=== PATIENT | male | born 1965 | race Caucasian/White ===

== ENCOUNTER 2022-05-15 14:02 | Emergency (ER) | payer BC, MEDICAID, SELFPAY ==
[2022-05-15 14:16] VITALS: BP 168/91; PULSE 89; RESP 17; TEMP 36.5; O2SAT 95; BMI 23.1
[2022-05-15 15:27] LABS: Basophils # 0.1 10^3/uL (0.0-0.1); Basophils % 0.6 %; Eosinophils # 0.1 10^3/uL (0.0-0.8); Eosinophils % 0.9 %; Hematocrit 43.7 % (42.0-52.0); Hemoglobin 14.4 g/dL (11.7-16.6); Lymphocytes # 2.3 10^3/uL (0.8-4.8); Lymphocytes % 27.3 %; Mean Corpuscular Hemoglobin 29.6 pg (28.0-34.0); Mean Corpuscular Volume 89.7 fl (80-94); Mean Platelet Volume 11.2 fL (7.4-10.4); Monocytes # 0.7 10^3/uL (0.2-0.9); Monocytes % 7.9 %; Neutrophils # 5.19 10^3/uL (1.8-7.7); Neutrophils % 63.1 %; Nucleated Red Blood Cells % 0 %; Platelet Count 194 10^3/cmm (130-400); Red Blood Count 4.87 10^6/uL (4.1-5.3); Red Cell Distribution Width 12.9 % (12.1-15.1); White Blood Count 8.2 10^3/uL (4.0-10.0)
[2022-05-15 15:45] LABS: Alanine Aminotransferase 10 U/L (0-41); Albumin Level 4.4 g/dL (3.5-5.2); Alkaline Phosphatase 93 U/L (40-130); Anion Gap 14.3 (5-19); Aspartate Amino Transferase 14 U/L (0-40); Blood Urea Nitrogen 20 mg/dL (6-20); Calcium 9.2 mg/dL (8.5-10.5); Carbon Dioxide 26 mmol/L (22-29); Chloride 105 mmol/L (98-107); Globulin 2.7 g/dL (1.3-4.6); Glomerular Filtration Rate 48.2 mL/min (90-130); Glucose 84 mg/dL (65-115); Lipase 32 U/L (13-60); Osmolality Calculated 294 mOsm/kg (285-295); Potassium 4.3 mmol/L (3.5-5.1); Sodium 141 mmol/L (136-145); Total Bilirubin 0.5 mg/dL (0.15-1.2); Total Protein 7.1 g/dL (6.6-8.7)
== END 2022-05-15 18:25 | disposition left against medical advice (07) ==
PROVIDERS: Physician Assistant; Emergency Provider Family Medicine; PCP Family Medicine
DX: R10.30 Lower abdominal pain, unspecified (principal); Z53.21 Procedure and treatment not carried out due to patient leaving prior to being seen by health care provider
CPT/HCPCS: 36415; 80053; 83690; 85025; 99283

== ENCOUNTER → 2023-10-20 12:26 | Outpatient (BNVA) | payer BC, MEDICAID, SELFPAY | PROVIDERS: PCP Family Medicine; Visit Provider Internal Medicine | DX: R00.1 Bradycardia, unspecified (principal) | CPT/HCPCS: 93005 ==

== ENCOUNTER → 2023-11-12 14:02 | Outpatient (BNVA) | payer BC, MEDICAID, SELFPAY | PROVIDERS: PCP Family Medicine; Visit Provider Orthopaedic Surgery | DX: M54.2 Cervicalgia (principal) | CPT/HCPCS: 36415; 72050; 80053; 81001; 85025 ==

== ENCOUNTER 2023-11-16 12:56 | Emergency (ER) | payer BC, MEDICAID, SELFPAY ==
[2023-11-16 12:57] VITALS: BP 149/76; PULSE 50; RESP 17; TEMP 36.7; O2SAT 100
--- NOTE | 2023-11-16 13:01 | CTR_ITS ---
PROCEDURE INFORMATION: Exam: CT Head Without Contrast Exam date and time: 11/16/2023 1:11 PM Age: 58 years old Clinical indication: Dizziness; Additional info: Possible stroke/tia TECHNIQUE: Imaging protocol: Computed tomography of the head without contrast. Radiation optimization: All CT scans at this facility use at least one of these dose optimization techniques: automated exposure control; mA and/or kV adjustment per patient size (includes targeted exams where dose is matched to clinical indication); or iterative reconstruction. COMPARISON: MR cervical spine wo/w [id number] 10/07/2023 12:04 PM RADIATION DOSE METRICS: Total DLP (mGy-cm): 1073 FINDINGS: Brain: No evidence of intra-axial or extra-axial hemorrhage. No mass effect or midline shift. Waller-white differentiation is maintained. Mild-moderate diffuse cerebral atrophy. Basilar cisterns are patent. Cerebral ventricles: No hydrocephalus. Paranasal sinuses: The visualized paranasal sinuses are well aerated. Mastoid air cells: The visualized mastoids and middle ears are clear. Bones: Calvarium is intact. No evidence of acute fracture. Soft tissues: No gross soft tissue abnormality. CT/CT head wo con* [id number] IMPRESSION: 1. No acute intracranial abnormality.
--- NOTE | 2023-11-16 13:01 | XRR_ITS ---
PROCEDURE INFORMATION: Exam: XR Chest Exam date and time: 11/16/2023 1:06 PM Age: 58 years old Clinical indication: Other: Weakness TECHNIQUE: Imaging protocol: Radiologic exam of the chest. Views: 1 view. COMPARISON: CR XR cervical spine 4-5V [id number] 11/12/2023 2:14 PM FINDINGS: Lungs: No focal consolidation. Pleural spaces: No evidence of pneumothorax. No evidence of pleural effusion. Heart/Mediastinum: Cardiomediastinal silhouette is within normal limits. Bones/joints: No evidence of acute osseous abnormality. XR/XR chest 1V portable [id number] IMPRESSION: 1. No acute cardiopulmonary abnormality.
--- NOTE | 2023-11-16 13:02 | ECG_ITS ---
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 Measurements Intervals [place] Rate: 48 P: 76 MD: 116 QRS: 64 QRSD: 102 T: 42 QT: 446 QTc: 399 Interpretive Statements SINUS BRADYCARDIA WITH SHORT MD INTERVAL POSSIBLE RIGHT VENTRICULAR CONDUCTION DELAY [RSR (QR) IN V1/V2] POSSIBLE LEFT VENTRICULAR HYPERTROPHY [VOLTAGE CRITERIA PLUS LAE OR QRS WIDENING] NONSPECIFIC T-WAVE ABNORMALITY Compared to ECG 10/20/2023 12:37:24 No significant changes Electronically Signed On 11-16-2023 23:26:09 CDT by Oriana Sanchez M.D. [email or web address]
--- NOTE | 2023-11-16 13:33 | ED_ITS ---
HPI - Neck Pain/Injury 2 General: Chief Complaint: Neck Pain/Injury Stated Complaint: weakness, blurry vision Time Seen by Provider: 11/16/23 12:57 History of Present Illness: 58-year-old man with history of hyperten selvin who presents emergency room from clinic after having an episode . Provider who called the emergency room says that he became fairly unresponsive. His vitals are remained normal. He says he has been having these episodes and it is related to pain in his neck and back. He has chronic pain there. He says he was doing a stress test and says he could not hold onto the bars for the treadmill and so he could not complete it. He said that it was hurting his hands. He says he remembers the episode completely. No chest pain. No abdominal pain. No nausea or vomiting. No altered mental status. No focal motor deficits. Related Data Home Medications Medication Instructions Recorded Confirmed duloxetine 20 mg capsule,delayed 20 mg PO DAILY 10/20/23 11/16/23 release lisinopril 20 mg tablet 20 mg PO DAILY 10/20/23 11/16/23 trazodone 50 mg tablet 50 mg PO DAILY 10/20/23 11/16/23 Allergies Allergy/AdvReac Type Severity Reaction Status Date / Time No Known Allergies Allergy Verified 11/16/23 12:15 Review of Systems 2 Narrative: Constitutional symptoms: Negative except as documented in HPI. Skin symptoms: Negative except as documented in HPI. Eye symptoms: Negative except as documented in HPI. ENMT symptoms: Negative except as documented in HPI. Respiratory symptoms: Negative except as documented in HPI. Cardiovascular symptoms: Negative except as documented in HPI. Gastrointestinal symptoms: Negative except as documented in HPI. Genitourinary symptoms: Negative except as documented in HPI. Musculoskeletal symptoms: Negative except as documented in HPI. Neurologic symptoms: Negative except as documented in HPI. Psychiatric symptoms: Negative except as documented in HPI. Endocrine symptoms: Negative except as documented in HPI. PFSH ED 2 PFSH: Medical History (Updated 11/16/23 @ 14:18 by Danielle Webster MD) Hypertension Social History Smoking and tobacco/nicotine status: current every day tobacco/nicotine user Physical Exam 2 Narrative: EXAM NARRATIVE: General: Alert, no acute distress. Skin: Warm, dry. Head: Normocephalic, atraumatic. Neck: Supple, trachea midline. Eye: Extraocular movements are intact. Ears, nose, mouth and throat: mucosa moist. Cardiovascular: Regular, Normal peripheral perfusion. Respiratory: Lungs are clear to auscultation, respirations are non-labored, breath sounds are equal, Symmetrical chest wall expansion. Gastrointestinal: Soft, Nontender, Non distended Musculoskeletal: Normal ROM, no deformity. Neurological: Alert and oriented, No focal neurological deficit observed. Psychiatric: Cooperative, appropriate mood & affect. Course 2 Vital Signs: Vital signs: Vital Signs Temperature 98.1 F 11/16/23 12:57 Pulse Rate 50 L 11/16/23 13:52 Respiratory Rate 16 11/16/23 13:52 Blood Pressure 149/76 11/16/23 13:52 Pulse Oximetry 99 11/16/23 13:52 Oxygen Delivery Me thod Room Air 11/16/23 13:52 MDM - Neck Pain/Injury Medical Decision Making CT head: No acute intracranial process. no intracranial hemorrhage, no evidence of infarct. no evidence of acute fracture.This was reviewed and interpreted by myself the ER physician. Chest x-ray: No acute process. No infiltrate. No pneumothorax. This was reviewed and interpreted by myself the ER physician. EKG: Time 1353. Rate 48. Sinus bradycardia, nonspecific ST wave abnormalities, no ectopy, normal FL & QRS intervals, This was reviewed and interpreted by myself the ER physician at 1358. Lab Review: Laboratory results were reviewed and interpreted by myself the emergency room physician. No leukocytosis. No anemia. Stable renal function with a BUN/creatinine of 24 and 1.5 which is his baseline. Troponin is negative. Urinalysis is negative. I reviewed the patient's medical record. Reexamination: Patient remained stable. No increased work of breathing. No altered mental status. No focal motor deficits. Patient says these episodes are related to his neck and back pain. Assessment and plan: Dizzy spells Bradycardia - Discharged home - Discussed findings and plan with patient. Answered any questions. - All laboratory values were reviewed and interpreted personally by myself, the ER physician - All imaging was reviewed and interpreted personally by myself, the ER physician. - Evaluation and treatment of this problem were appropriate in the emergency setting Lab Data 11/16/23 13:26 11/16/23 13:26 Radiology Impressions Chest X-Ray 11/16/23 13:01 IMPRESSION: 1. No acute cardiopulmonary abnormality. Head CT 11/16/23 13:01 IMPRESSION: 1. No acute intracranial abnormality. Laboratory Results WBC 7.89 10^3/uL (3.29-11.43) 11/16/23 13:26 RBC 4.60 10^6/uL (3.85-5.65) 11/16/23 13:26 Hgb 13.90 g/dL (11.27-16.99) 11/16/23 13:26 Hct 42.1 % (37-53) 11/16/23 13:26 MCV 91.5 fl (82-101) 11/16/23 13:26 MCH 30.2 pg (27-33) 11/16/23 13: MCHC 33.0 g/dL (30-55) 11/16/23 13:26 RDW 13.1 % (12.1-15.1) 11/16/23 13:26 Plt Count 188 10^3/cmm (157-399) 11/16/23 13:26 MPV 10.6 fL (7.4-10.4) H 11/16/23 13:26 Neut % (Auto) 69.6 % 11/16/23 13:26 Lymph % (Auto) 22.3 % 11/16/23 13:26 [place] % (Auto) 6.3 % 11/16/23 13:26 Eos % (Auto) 1.0 % 11/16/23 13:26 Baso % (Auto) 0.5 % 11/16/23 13:26 Neut # (Auto) 5.49 10^3/uL (1.8-7.7) 11/16/23 13:26 Lymph # (Auto) 1.8 10^3/uL (0.8-4.8) 11/16/23 13:26 [place] # (Auto) 0.5 10^3/uL (0.2-0.9) 11/16/23 13:26 Eos # (Auto) 0.1 10^3/uL (0.0-0.8) 11/16/23 13:26 Baso # (Auto) 0.0 10^3/uL (0.0-0.1) 11/16/23 13:26 Nucleated RBC % (auto) 0 % 11/16/23 13:26 Nucleated RBCs # 0.0 /100WBC 11/16/23 13:26 Sodium 140 mmol/L (136-145) 11/16/23 13:26 Potassium 4.8 mmol/L (3.5-5.1) 11/16/23 13:26 Chloride 104 mmol/L (98-107) 11/16/23 13:26 Carbon Dioxide 27 mmol/L (22-29) 11/16/23 13:26 Anion Gap 13.8 (5-19) 11/16/23 13:26 BUN 24 mg/dL (6-20) H 11/16/23 13:26 Creatinine 1.5 mg/dL (0.7-1.2) H 11/16/23 13:26 GFR Calculation 47.9 mL/min (90-130) L 11/16/23 13:26 Glucose 92 mg/dL (65-115) 11/16/23 13:26 Calculated Osmolality 294 mOsm/kg (285-295) 11/16/23 13:26 Lactic Acid 1.2 mmol/L (0.5-2.2) 11/16/23 13:26 Calcium 9.4 mg/dL (8.5-10.5) 11/16/23 13:26 Total Bilirubin 0.2 mg/dL (0.15-1.2) 11/16/23 13:26 AST 12 U/L (0-40) 11/16/23 13:26 ALT 10 U/L (0-41) 11/16/23 13:26 Alkaline Phosphatase 93 U/L (40-130) 11/16/23 13:26 Troponin T Baseline 12 ng/L (0-15) 11/16/23 13:26 C-Reactive Protein 3.0 mg/L (0.0-4.9) 11/16/23 13:26 Total Protein 6.7 g/dL (6.6-8.7) 11/16/23 13:26 Albumin 4.5 g/dL (3.5-5.2) 11/16/23 13:26 Globulin 2.2 g/dL (1.3-4.6) 11/16/23 13:26 Urine Color Yellow (Yellow) 11/16/23 14:01 Urine Appearance Clear (CLEAR) 11/16/23 14:01 Urine pH 7.0 (5-7) 11/16/23 14:01 Ur Specific [place] 1.021 (1.005-1.030) 11/16/23 14:01 Urine Protein Trace (Negative) A 11/16/23 14:01 Urine Glucose (UA) Negative (Normal) 11/16/23 14:01 Urine Ketones Negative (Negative) 11/16/23 14:01 Urine Blood Negative (Negative) 11/16/23 14:01 Urine Nitrate Negative (Negative) 11/16/23 14:01 Urine Bilirubin Negative (Negative) 11/16/23 14:01 Urine Urobilinogen 1.0 mg/dL (Negative) 11/16/23 14:01 Ur Leukocyte Esterase Negative (Negative) 11/16/23 14:01 Urine RBC 0-2 /hpf (0-2) 11/16/23 14:01 Urine WBC 0-5 /hpf (0-5) 11/16/23 14:01 Ur Squamous Epith Cells 0-5 /hpf (0-5) 11/16/23 14:01 Amorphous Sediment Not Reportable 11/16/23 14:01 Urine Bacteria None seen /hpf (NONE) 11/16/23 14:01 Hyaline Casts 0.40 /lpf 11/16/23 14:01 All radiology interpretation(s) finalized by discharge Discharge Plan Discharge Patient Disposition: Home Clinical Impression: Dizzy spells Condition: Stable Prescriptions: No Action lisinopril 20 mg tablet 20 mg PO DAILY duloxetine 20 mg capsule,delayed release(DR/EC) 20 mg PO DAILY trazodone 50 mg tablet 50 mg PO DAILY Discharge Orders: Discharge ED (Routine); Ordered 11/16/23 Ordered By: Danielle Webster Referrals: Conner Haile [Primary Care Provider] - Discharge Diet: Usual diet Discharge Activity: Increase activity as tolerated Patient Instructions: Dizziness (ED), Back Pain (ED) Activity Restrictions/Additional Instructions: Thank you for choosing [facility] for your healthcare needs today. Please realize this is an emergency room and that we are providing you with a medical screening exam and this may not be complete and all inclusive of all the testing and or work up that you may need to determine your ailment or severity of your illness. You have been screened and evaluated and felt safe for discharge. Health conditions do change or evolve sometimes and as such it is important that you follow up with your Primary Doctor to be re checked, 3-5 days is a general good time frame for follow up. You are always welcome to return to the ED for re assessment if your symptoms are worsening or you have new concerns Coding Level of Care Code ED Watch Repairer for Mimi Griffiths
[2023-11-16 13:37] LABS: Basophils % 0.5 %; Eosinophils # 0.1 10^3/uL (0.0-0.8); Hematocrit 42.1 % (37-53); Lymphocytes # 1.8 10^3/uL (0.8-4.8); Lymphocytes % 22.3 %; Mean Corpuscular Hemoglobin 30.2 pg (27-33); Mean Corpuscular Volume 91.5 fl (82-101); Mean Platelet Volume 10.6 fL (7.4-10.4); Monocytes # 0.5 10^3/uL (0.2-0.9); Monocytes % 6.3 %; Neutrophils # 5.49 10^3/uL (1.8-7.7); Neutrophils % 69.6 %; Nucleated Red Blood Cells % 0 %; Platelet Count 188 10^3/cmm (157-399); Red Cell Distribution Width 13.1 % (12.1-15.1); White Blood Count 7.89 10^3/uL (3.29-11.43)
[2023-11-16 13:52] VITALS: BP 149/76; PULSE 50; RESP 16; O2SAT 99
[2023-11-16 13:54] LABS: Troponin(5th) Baseline 12 ng/L (0-15)
[2023-11-16 13:55] LABS: Lactic Sepsis W/Reflex 1.2 mmol/L (0.5-2.2)
[2023-11-16 14:05] LABS: Alanine Aminotransferase 10 U/L (0-41); Albumin Level 4.5 g/dL (3.5-5.2); Alkaline Phosphatase 93 U/L (40-130); Anion Gap 13.8 (5-19); Aspartate Amino Transferase 12 U/L (0-40); Blood Urea Nitrogen 24 mg/dL (6-20); Calcium 9.4 mg/dL (8.5-10.5); Carbon Dioxide 27 mmol/L (22-29); Chloride 104 mmol/L (98-107); Creatinine Clr Calc Pharmacy 49.8846; Globulin 2.2 g/dL (1.3-4.6); Glomerular Filtration Rate 47.9 mL/min (90-130); Glucose 92 mg/dL (65-115); Osmolality Calculated 294 mOsm/kg (285-295); Potassium 4.8 mmol/L (3.5-5.1); Sodium 140 mmol/L (136-145); Total Bilirubin 0.2 mg/dL (0.15-1.2); Total Protein 6.7 g/dL (6.6-8.7)
[2023-11-16 14:06] LABS: Bilirubin Urine Negative (Negative); Blood Urine Negative (Negative); Glucose Urine UA Negative (Normal); Ketones Urine Negative (Negative); Leukocyte Esterase Urine Negative (Negative); Nitrate Urine Negative (Negative); Protein Urine Trace (Negative); Specific Gravity, Urine 1.021 (1.005-1.030); Urine Appearance Clear (CLEAR); Urine Color Yellow (Yellow)
[2023-11-16 14:10] LABS: Bacteria Urine None Seen /hpf; RBC Urine 0-2 /hpf (0-2); Squamous Epithelial Cell Urine 0-5 /hpf (0-5); WBC Urine 0-5 /hpf (0-5)
[2023-11-16 14:32] VITALS: BP 134/73; PULSE 59; RESP 18; O2SAT 99
== END 2023-11-16 14:33 | disposition home or self-care (01) ==
PROVIDERS: Emergency Provider Emergency Medicine; PCP Family Medicine
DX: R42 Dizziness and giddiness (principal); R00.1 Bradycardia, unspecified; I10 Essential (primary) hypertension; Z72.0 Tobacco use
CPT/HCPCS: 36415; 70450; 71045; 80053; 81001; 83605; 84484; 85025; 86140; 93005; 99285

== ENCOUNTER 2023-12-01 09:40 | Outpatient (CLI) | payer BC, MEDICAID, SELFPAY ==
--- NOTE | 2023-12-01 | ECG_ITS ---
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 Interpretive Statements LEXISCAN SESTAMIBI STRESS TEST Procedure: At the baseline, the blood pressure was 182/89 mmHg with a heart rate of 43 bpm. The electrocardiogram showed Sinus bradycardia, normal axis with normal ST and T's. The Lexiscan was infused over a period of 20 seconds. A total of 0.4 mg of Lexiscan was infused. The stress phase was continued for a total of 5 minutes. Heart rate was at the end of stress phase was 71 bpm and a blood pressure of 177/77 mmHg. The EKG at the peak infusion revealed normal sinus rhythm with no significant ST-T wave changes. Sestamibi was injected 20 seconds after the Lexiscan infusion. Blood pressure at the end of recovery phase was 170/104 mmHg with a heart rate of 71 bpm. Conclusion: 1. Normal EKG response to Lexiscan infusion 2. No Lexiscan induced chest pain or cardiac arrhythmia. 3. Normal blood pressure and heart rate response. 4. Sestamibi/sestamibi perfusion scan pending; see separate report. Electronically Signed On 12-04-2023 20:22:33 CDT by Richard Harrington M.D. [id number]
[2023-12-01 09:52] VITALS: BMI 21.1
--- NOTE | 2023-12-01 09:53 | NMCV_ITS ---
NM monserrat perf SPECT r/s* [id number] Jovon Castellanos Age: 58 Gender: M : 1965 Exam Date: 12/01/2023 10:32 Ordering Phys: Richard Harrington M.D ([email or web address]) Technologist: LALO Silvestre Exam Location: [facility] Indications: cp STRESS TEST Please see separate stress test report in [facility] for full findings IMAGE PROTOCOL Rest/Stress 1 Exercise Day Radiopharmaceutical Dose (mCi) Administration Site Administered by Rest: Tc-99m 10.9 IV Marlene Reyna, LALO Sestamibi Stress:Tc-99m 32.9 IV LALO Silvestre Sestamibi Rest: 01-Dec-2023 60 Discovery 630 Stress: 01-Dec-2023 30 Discovery 630 0.4mg Lexiscan. Images obtained in supine and prone position. SPECT RESULTS Technical Quality: Good Raw Data Analysis: Normal Image Corrections: No attenuation or motion correction applied Summed Stress Score: 7 Summed Rest Score: 4 Summed Difference Score: 5 PERFUSION FINDINGS Medium sized area of fixed perfusion defect noted in basal to mid and lateral and inferolateral wall with distal small to medium area of mild reversibility suggestive of old myocardial infarction surrounded by small to medium sized area of derik-infarct ischemia in circumflex territory. Large area of fixed perfusion defect noted in basal to distal inferior and inferoseptal wall surrounded by mild area of reversibility in the distal and apical segment suggestive of old myocardial infarction surrounded by mild area of derik-infarct ischemia in the RCA territory. There appeared to be small area of apical severe reversibility suggestive of ischemia in distal LAD territory FUNCTIONAL RESULTS (calculated via Gated SPECT) Stress Image LV EF (%): 52 Stress EDV (mL):148 TID: 1.04 Stress ESV (mL):71 FUNCTIONAL FINDINGS: There is normal left ventricular systolic function. There appeared to be inferior wall akinesis IMPRESSIONS Medium sized area of old myocardial infarction versus scarring noted in basal to mid inferior and inferolateral lateral wall of the left ventricle surrounded by small to medium sized area of mild to moderate reversibility suggestive of ischemia in circumflex territory Large area of fixed perfusion defect noted in basal to distal inferior wall surrounded by mild area of reversibility suggestive of old myocardial infarction surrounded by mild derik-infarct ischemia in RCA territory Small area of severe reversibility noted in apical segment of the left ventricle suggestive of possible ischemia in a small distal area of LAD Kate Olivarez MD (Electronically Signed) Final Date: 01 December 2023 17:48 S
[2023-12-01] MEDS: regadenoson 0.4 Mg/5 ml Syringe IVP (11:11)
[2023-12-01] MEDS: aminophylline 25 mg/mL SDV 10 mL IVP (11:22)
[2023-12-01 11:24] VITALS: BP 170/104; PULSE 71
== END 2023-12-01 09:41 | disposition home or self-care (01) ==
PROVIDERS: PCP Family Medicine; Visit Provider Internal Medicine
DX: R07.9 Chest pain, unspecified (principal); R94.39 Abnormal result of other cardiovascular function study
CPT/HCPCS: 36415; 78452; 93017; 96374; A9500; J0280; J2785

== ENCOUNTER 2023-12-09 05:43 | Outpatient (CLI) | payer BC, MEDICAID, SELFPAY ==
[2023-12-09] VITALS (11 sets, daily range): BP systolic 116–131; BP diastolic 63–78; PULSE 47–63; RESP 13–25; TEMP 36.9; O2SAT 94–96; BMI 20.7
--- NOTE | 2023-12-09 06:00 | XACV_ITS ---
Exam Room: 2 Ht: 170 cm Wt: 60 kg BSA: 1.68 m2 Gender: Male : 1965 Any Known Allergies: No known allergies Exam Priority: Routine Procedure(s): Procedure Description: Diagnostic procedure Procedure Description: Left Heart Catheterization Procedure Description: Coronary Angiography Diagnostic Cath Status: Elective Diagnostic Findings * INDICATION: Dyspnea on exertion/abnormal stress test/ Chest pain. * No significant disease noted in the Left Main, Left Anterior Descending, Right, or Circumflex coronary arteries. * Coronary angiography shows right dominance. Conclusions 1. No significant disease noted in the Left Main, Left Anterior Descending, Right, or Circumflex coronary arteries. Recommendations * Aggressive risk factor control. * Outpatient cardiology follow up in 2 weeks. Interventional RX Recommendation: medical therapy and/or counseling Diagnostic RX Recommendation: medical therapy and/or counseling Anticoagulation: Heparin Pressures Phase:Rest AO : 97 / 68 ( 83 ) @ 12:24:00 PM 110 / 64 ( 83 ) @ 12:29:00 PM 108 / 64 ( 82 ) @ 12:29:00 PM LV : 134 / 3 / 11 @ 12:29:00 PM 138 / 2 / 12 @ 12:29:00 PM Valves Phase:DefaultPhase AV : 26.0 @ 11:34:17 AM AV Mean Gradient: 19.0 @ 11:34:17 AM Clinical Evaluation EBL: 5mL-10mL Procedural Details Pre-Procedure Time Out. Identified patient by full name and date of as verbalized by the patient/guarantor. Does the consent match the physician's order: Yes. Accurate & Complete Informed Consent: Yes. Inpatient/Outpatient History & Physical on Chart: Yes. If H&P is completed, is and addenduem needed: No; If yes, is the addendum complete: N/A. Visualize and Verify Site with Patient/Guarantor: N/A. Relevant Radiology Images available: Yes. Pre-op teaching completed and patient verbalized understanding. The risks, benefits, and alternatives of sedation and/or procedure were discussed by physician. The patient agrees to continue. Procedure started. [facility] Clinical Fraility Score: 3: Managing Well. Application Support Analyst Indications: Worsening Angina. Chest Pain Symptom Assessment: Atypical Angina. Correct patient, site and procedure confirmed by cath team. Current diagnosis: Chest Pain. PERRLA. Strong, equal hand college director bilaterally. Lungs clear x 5 lobes. IV Site on Arrival: 20 gauge in the left anticubital. IV Fluids: 0.9% NaCl at KVO. 700 mL infused prior to livestock laborer. Pre Procedural Pulses: bilateral dorsalis pedis was 3+. Pre Procedural Pulses: bilateral posterior tibial was 3+. Pre Procedural Pulses: bilateral radial was 3+. Oxygen started at 2liters/min via nasal canula. right groin was prepped with chloroprep then draped in the usual sterile fashion. right radial was prepped with chloroprep then draped in the usual sterile fashion. Baseline sample Acquired. HR: 49 BPM. Physician arrived. Physician scrubbed in. Immediate Pre-Procedure Time Out. Correct Patient: Yes; Correct Procedure: Yes; Correct Site: Yes; Correct Patient Position: Yes; Correct Supplies: Yes; Dried Flammable Prep: Yes; Blood Products Available: N/A;. Lidocaine 1% infiltrated to the right radial. Arterial access obtained. A 5 scottish TIG catheter in over wire. Multiple views taken of left coronary artery. Catheter redirected to the RCA. Catheter removed over the exchange wire. A 5 scottish JR4 catheter in over wire. Multiple views taken of right coronary artery. EDP Sample taken: LV 134/3,11; HR: 57 BPM; SpO2: 100%. Pullback taken: LV 138/2,12; AO 110/64(83); Mean: 19mmHg, Peak to Peak: 26mmHg, SEP: 16sec/min; HR: 57 BPM; SpO2: 100%. Catheter removed over the exchange wire. Physician scrubbed out. A TR Band was successful obtaining hemostatsis at the Right Radial artery insertion site. Vital chart was stopped. Post Procedure: Pulses reassessed and unchanged. PERRLA. Strong, equal hand college director bilaterally. No VTE prophylaxis required. Medication's Wasted: Lidocaine 1% = 16 mL. Medication's Wasted: Nitro = 49.8 mg. Medication's Wasted: Heparin = 1000 units. Total IV fluids: 70 mL. Complications: None. Estimated blood loss: 5mL-10mL. Responsiveness - Normal response to verbal stimuli; alert and oriented, PERRLA. Airway - Unaffected, no intervention required; spontaneous ventilation. Circulation: W/N/L, pulses unchanged. Nausea/Vomiting: No. Procedure completed. Patient transferred by wheelchair to CPRU. Access Site Site: Right Radial artery Sheath Size: 6 Fr Hemostasis Method: TR Band Hemostasis Success: Successful Procedure Medications Start: 11:18 AM Stop: :18 AM Medication: Versed Amount: 1 mg Route: I.V. Start: 11:18 AM Stop: 11:18 AM Medication: Fentanyl Amount: 50 mcg Route: I.V. Start: 11:19 AM Stop: 11: AM Medication: Versed 1 mg and Fentanyl 25 mcg Amount: 1 Route: I.V. Start: 11:20 AM Stop: 11: AM Medication: Nitrogylcerin Amount: 200 mcg Route: I.A. Start: 11: AM Stop: : AM Medication: Heparin Amount: 5000 units Route: I.V. I, the attending physician, have reviewed and verified all procedure medications. Yes, all medications given per verbal order History/Risk Factors Hypertension: Yes Dyslipidemia: No Peripheral Arterial Disease (PAD): No Myocardial Infarction (SD): No Obesity: No Renal Disease: No Tobacco Use: Current/Recent(w/in 1 year) Prior Interventions PCI: No CABG: No Valve Surgery: No Report Signatures Finalized by Richard Harrington MD on 12/09/2023 01:24 PM
[2023-12-09 06:08] LABS: Basophils # 0.1 10^3/uL (0.0-0.1); Basophils % 0.6 %; Eosinophils # 0.2 10^3/uL (0.0-0.8); Eosinophils % 1.8 %; Hematocrit 44.3 % (37-53); Lymphocytes # 1.5 10^3/uL (0.8-4.8); Lymphocytes % 17.8 %; Mean Corpuscular HGB Conc 32.1 g/dL (30-55); Mean Corpuscular Hemoglobin 29.7 pg (27-33); Mean Corpuscular Volume 92.7 fl (82-101); Mean Platelet Volume 10.7 fL (7.4-10.4); Monocytes # 0.7 10^3/uL (0.2-0.9); Monocytes % 8.8 %; Neutrophils # 5.89 10^3/uL (1.8-7.7); Neutrophils % 70.8 %; Nucleated Red Blood Cells % 0 %; Platelet Count 195 10^3/cmm (157-399); Red Blood Count 4.78 10^6/uL (3.85-5.65); Red Cell Distribution Width 12.7 % (12.1-15.1); White Blood Count 8.32 10^3/uL (3.29-11.43)
--- NOTE | 2023-12-09 06:15 | SUR.PREOP ---
patient here for pre cath hydration. IV was started and NS is infusing at 100ml/hr per Dr. Harrington.
[2023-12-09 06:25] LABS: Anion Gap 11.6 (5-19); Blood Urea Nitrogen 24 mg/dL (6-20); Calcium 8.7 mg/dL (8.5-10.5); Carbon Dioxide 28 mmol/L (22-29); Chloride 107 mmol/L (98-107); Glomerular Filtration Rate 44.5 mL/min (90-130); Glucose 135 mg/dL (65-115); Osmolality Calculated 300 mOsm/kg (285-295); Potassium 4.6 mmol/L (3.5-5.1); Sodium 142 mmol/L (136-145)
--- NOTE | 2023-12-09 06:32 | SUR.PREOP ---
This AM creatinine is 1.6. Dr. Harrington notified. Orders received for a 250ml NS bolus followed by 100ml/hr.
[2023-12-09] MEDS: sodium chloride 0.9% 250 ML 999 ML IV (06:44)
[2023-12-09] MEDS: sodium chloride 0.9% 1,000 ML 100 ML IV (06:50)
[2023-12-09] MEDS: diphenhydrAMINE 50 mg Capsule PO (08:23)
[2023-12-09] MEDS: aspirin 325 mg Tablet PO (08:23)
--- NOTE | 2023-12-09 11:41 | P.HPUD_ITS ---
Surgery/Procedure H&P Update DATE OF PROCEDURE: December 09, 2023 PLANNED PROCEDURE: Operation Date: 12/09/23 10:00 Proposed Procedures p Cardiac Catheterization - [facility] w/wo LV & Coros(Left) - Richard Harrington M.D
--- NOTE | 2023-12-09 11:41 | W.PM.OPSUD ---
Surgery/Procedure H&P Update DATE OF PROCEDURE: December 09, 2023 PLANNED PROCEDURE: Operation Date: 12/09/23 10:00 Proposed Procedures p Cardiac Catheterization - [facility] w/wo LV & Coros(Left) - Richard Harrington M.D
--- NOTE | 2023-12-09 13:25 | P.HP_ITS ---
Same Day Surgery H&P Indication for Procedure/HPI DATE OF PROCEDURE: December 09, 2023 CHIEF COMPLAINT/INDICATIONFOR SURGICAL PROCEDURE: Chest pain/dyspnea on exertion/abnormal stress test PREOP DIAGNOSIS: Chest pain/dyspnea on exertion/abnormal stress test PLANNED PROCEDURE: Operation Date: 12/09/23 10:00 Proposed Procedures p Cardiac Catheterization - [facility] w/wo LV & Coros(Left) - Richard Harrington M.D 58-year-old man who has been having chest pain symptoms and had abnormal stress test here for coronary angiogram. He has been getting prehydrated as has CKD. Medications/Allergies* Home Medications Medication Instructions Recorded Confirmed Type duloxetine 20 mg capsule,delayed 20 mg PO DAILY 10/20/23 12/09/23 History release lisinopril 20 mg tablet 20 mg PO DAILY 10/20/23 12/09/23 History trazodone 50 mg tablet 50 mg PO DAILY 10/20/23 12/09/23 History Allergies/Adverse Reactions Allergy/AdvReac Type Severity Reaction Status Date / Time No Known Allergies Allergy Verified 12/09/23 06:37 Current Medications: Generic Name Dose Route Start Last Admin Trade Name Freq PRN Reason Stop Dose Admin Sodium Chloride 1,000 mls @ 50 mls/hr 12/09/23 06:00 12/09/23 06:36 Sodium Chloride 0.9% IV 12/10/23 01:59 Not Given .Q20H ONE Sodium Chloride 250 mls @ 999 mls/hr 12/09/23 06:32 12/09/23 06:44 Sodium Chloride 0.9% IV 999 mls/hr .Q16M ALANA Administration Sodium Chloride 1,000 mls @ 100 mls/hr 12/09/23 06:45 12/09/23 06:50 Sodium Chloride 0.9% IV 100 mls/hr .Q10H ALANA Administration Pertinent History/Comorbid Conditions* Medical History (Updated 11/24/23 @ 00:01 by CECILY Black) Hypertension Social History Smoking and tobacco/nicotine status: current every day tobacco/nicotine user Pertinent Exam Findings alert, oriented x 3, clear to auscultation bilaterally and regular rate & rhythm Conscious Sedation Assessment PATIENT ASSESSED PRIOR TO SEDATION, WITH NO CHANGE NOTED: Yes AIRWAY EVAL/ANESTHESIA PLAN: normal airway, ASA III, Local Anesthesia, Risks, benefits & alternatives of sedation and/or procedure discussed and Patient agrees to continue as planned ADDITIONAL INFORMATION: Moderate sedation Recommendations Surgery/Procedure today (Left heart cath with possible percutaneous coronary intervention) Coding Level of Care Code Acute Code for g Aye
== END 2023-12-09 18:35 | disposition home or self-care (01) ==
LOC: CCL 05:57 → CSU 13:17
PROVIDERS: PCP Family Medicine; Visit Provider Internal Medicine
DX: R07.9 Chest pain, unspecified (principal); I10 Essential (primary) hypertension; N18.9 Chronic kidney disease, unspecified; F17.200 Nicotine dependence, unspecified, uncomplicated
CPT/HCPCS: 36415; 80048; 85025; 93458; 96360; 96361; 99152; C1769; C1887; C1894; J1644; J2250; J3010; J3490; J7030; Q0163; Q9967

== ENCOUNTER → 2023-12-18 09:40 | Outpatient (BNVA) | payer BC, MEDICAID, SELFPAY | PROVIDERS: PCP Family Medicine; Visit Provider Nurse Practitioner Family | DX: I10 Essential (primary) hypertension (principal); R07.9 Chest pain, unspecified | CPT/HCPCS: 36415; 80048 ==

== ENCOUNTER 2024-01-06 10:53 | Day surgery (SDC) | payer BC, MEDICAID, SELFPAY ==
[2024-01-06] VITALS (13 sets, daily range): BP systolic 123–176; BP diastolic 72–126; PULSE 60–102; RESP 16–18; TEMP 36.1–36.6; O2SAT 98–100; BMI 21.1
--- NOTE | 2024-01-06 | XR_ITS ---
WS: [id number] Cervical spine, C-arm fluoroscopy views, 01/06/2024 Clinical Data: MEETA PICS Comparison: Cervical spine, 11/12/2023 Findings: Dr. Ang performed an anterior cervical disc fusion. XR/XR cervical spine 3V* [id number] Impression: Anterior cervical disc fusion.
[2024-01-06] MEDS: sodium chloride 0.9% 1,000 ML 30 ML IV (12:51)
--- NOTE | 2024-01-06 12:59 | ANES.PREANE2 ---
Pre-Anesthetic Assessment Height/Weight: Height 5 ft 7 in Weight 135 lb Temp Pulse Resp BP Pulse Ox O2 Del Method 97.5 F L 60 16 131/79 99 Room Air 01/06/24 11:48 01/06/24 11:48 01/06/24 11:48 01/06/24 11:48 01/06/24 11:48 01/06/24 11:48 Preop Diagnosis: Cervical radiculopathy and myelopathy Operation Date: 01/06/24 12:45 Proposed Procedures p Anterior Cervical Discectomy & Fusion ACDF w/ Anterior Interbody Fusion w/ Cage w/ Instrumentation w/ Allograft w/ Navigation(Not Applicable) - Shay Ang, DO Was Beta Harriett taken within 24 hours: N/A Was Clonidine taken within 24 hours: N/A Last intake: Intake Last Liquid Date 01/05/24 Last Liquid Time 20:00 Last Solid Date 01/05/24 Last Solid Time 20:00 Social Tobacco and No alcohol Exam alert and oriented x 3 decreased breath sounds bilaterally Airway Submandibular: within normal limits Cervical ROM: Other (Limited neck extension) Mallampati: Class II Dentition: other Comments: Comments: Multiple missing/decayed teeth. Denies any loose Anesthetic Plan ASA status: 3 Anesthesia: General Other: No prior issues with anesthesia NPO since yesterday History of hypertension on lisinopril. Preop BP 131/79 Cervical spondylosis Current smoker, no inhalers or oxygen CKD, baseline creatinine around 1.4 Patient able to perform ADLs Plan for general anesthesia Medications/Allergies Home Medications Medication Instructions Recorded Confirmed Last Taken Type duloxetine 20 mg capsule,delayed 20 mg PO DAILY 10/20/23 01/05/24 01/05/24 History release lisinopril 20 mg tablet 20 mg PO DAILY 10/20/23 01/05/24 01/05/24 History trazodone 50 mg tablet 50 mg PO DAILY 10/20/23 01/05/24 01/05/24 History Bone Growth Stimulator #1 ea 01/04/24 Unknown Rx Allergies Allergy/AdvReac Type Severity Reaction Status Date / Time No Known Allergies Allergy Verified 12/18/23 09:16 Current Medications Generic Name Dose Route Start Last Admin Trade Name Freq PRN Reason Stop Dose Admin Sodium Chloride 1,000 mls @ 30 mls/hr 01/06/24 11:15 01/06/24 12:51 Sodium Chloride 0.9% IV 01/07/24 11:14 30 mls/hr .Q24H ALANA Administration PFSH Anesthesia Medical History Hypertension Social History Smoking and tobacco/nicotine status: current every day tobacco/nicotine user Data Anesthesia Cardiac Studies: Sestamibi Stress Test (Cardiology) 12/01/23
--- NOTE | 2024-01-06 13:05 | W.PM.OPSUD ---
Surgery/Procedure H&P Update DATE OF PROCEDURE: January 06, 2024 DATE H&P PERFORMED: 12/18/23 H&P UPDATE INFORMATION: I have reviewed H&P completed within last 30 days, I have examined patient prior to procedure and No changes to prior documentation PREOP DIAGNOSIS: Cervical radiculopathy and myelopathy PLANNED PROCEDURE: Operation Date: 01/06/24 12:45 Proposed Procedures p Anterior Cervical Discectomy & Fusion ACDF w/ Anterior Interbody Fusion w/ Cage w/ Instrumentation w/ Allograft w/ Navigation(Not Applicable) - Shay Ang DO
[2024-01-06] MEDS: ceFAZolin 2,000 mg SDV 2000 MG IVP (13:49)
[2024-01-06] MEDS: lidocaine-epi 1% 20 mL INJ INJECTION (14:36)
[2024-01-06] MEDS: fentaNYL 50 mcg/mL INJ 2mL IVP (15:55)
[2024-01-06] MEDS: midazolam 1 mg/mL INJ 2 mL 2 MG IVP (15:58)
--- NOTE | 2024-01-06 16:28 | PM.OP ---
Operative Report Date of procedure: January 06, 2024 Pre-op diagnosis: Cervical radiculopathy Post-op diagnosis: same Procedure done: 1. Anterior diskectomy C5/6 2. Anterior discectomy C6/7 3. Insertion of cage C5/6 4. Insertion of Cage C6/7 5. Instrumentation with anterior plate from C5-C7 6. Use of allograft Surgeon: Shay Ang DO Estimated blood loss (mL): 25 Brief History: 1. Anterior diskectomy C5/6 2. Anterior discectomy C6/7 3. Insertion of cage C5/6 4. Insertion of Cage C6/7 5. Instrumentation with anterior plate from C5-C7 6. Use of allograft The patient was taken to the operating room, where he underwent general endotracheal anesthesia without complications. He was then positioned supine on the operating table, and all areas of impingement were well padded. The arms were carefully padded and tucked at his sides. A roll was placed between the shoulder blades.. An x-ray was done to determine the appropriate level for the skin incision. The entire neck was then sterilely prepped and draped in the usual fashion. Neuromonitoring was attached prior to prepping. A transverse skin incision was made and carried down to the platysma muscle. This was then split in line with its fibers. Blunt dissection was carried down medial to the carotid sheath and lateral to the trachea and esophagus until the anterior cervical spine was visualized. A needle was placed into a disc and an x-ray was done to determine its location. The longus colli muscles were then elevated bilaterally with the electrocautery unit. Self-retaining retractors were placed deep to the longus colli muscle. Attention was brought to the C5/6 level that was confirmed on x-ray. A caspar pin was placed into the C5 vertebrae and the C6 vertebrae. The disk space was then distracted. The microscope was then brought in. A radical anterior discectomies were performed at C5/6. This included complete removal of the anterior annulus, nucleus, and posterior annulus. The posterior longitudinal ligament was removed as were the posterior osteophytes. Foraminotomies were then accomplished bilaterally. This was done using a high speed buzz, kerrison rongeurs and curretes Once all of this was accomplished, the curved currette was used to check for any residual compression. The central canal was wide open as were the foramen. A high-speed bur was used to remove the cartilaginous endplates above and below the interspace. Bleeding cancellous bone was exposed. The disc space were measured and appropriate size cage were placed sterilely onto the field. Allograft graft was packed into the cages. The cage was then placed and there was good juxtaposition against the bleeding decorticated surfaces and good distraction of each interspace. Attention was brought to the next interspace. The [place] pins were removed. Bone wax was used to prevent any bleeding from occurring at the pin sites. Attention was brought to the c6/7 level that was confirmed on x-ray. A caspar pin was placed into the C6 vertebrae and the C7 vertebrae. The disk space was then distracted. The microscope was then brought in. A radical anterior discectomies were performed at C6/7. This included complete removal of the anterior annulus, nucleus, and posterior annulus. The posterior longitudinal ligament was removed as were the posterior osteophytes. Foraminotomies were then accomplished bilaterally. This was done using a high speed buzz, kerrison rongeurs and curretes Once all of this was accomplished, the curved currette was used to check for any residual compression. The central canal was wide open as were the foramen. A high-speed bur was used to remove the cartilaginous endplates above and below the interspace. Bleeding cancellous bone was exposed. The disc space were measured and appropriate size cage were placed sterilely onto the field. Allograft graft was packed into the cages. The cage was then placed and there was good juxtaposition against the bleeding decorticated surfaces and good distraction of each interspace. Attention was brought to the next interspace. The [place] pins were removed. Bone wax was used to prevent any bleeding from occurring at the pin sites. The appropriate size anterior cervical locking plate was chosen and bent into gentle lordosis. Two screws were then placed into each of the vertebral bodies at C5, C6 and C7. There was excellent purchase. A final x-ray was done confirming good position of the hardware and Cages. The locking screws were then applied, also with excellent purchase. Following a final copious irrigation, there was good hemostasis and no dural leaks. The carotid pulse was strong. The wounds were then closed in layers using 2-0 Vicryl suture for the platysma muscle, 2-0 Vicryl suture for the subcutaneous tissue, and 4-0 monocryl suture in a subcuticular skin closure. Glue was placed followed by application of a sterile dressing. The drain was hooked to bulb suction. A soft collar was applied. The patient was then carefully returned to the supine position on his hospital bed where he was reversed and extubated and taken to the recovery room having tolerated the procedure well.
[2024-01-06] MEDS: HYDROcodone-acetaminophen 5-325 mg Tablet 1 TAB PO (16:44)
--- NOTE | 2024-01-06 17:40 | ANE.PACU2 ---
Inpatient post-anesthesia follow up: Airway intact: Yes Vital signs: Temperature 98 F Pulse Rate 88 Respiratory Rate 17 Blood Pressure 149/72 Pulse Oximetry 98 Oxygen Delivery Me thod Room Air Oxygen Flow Rate 8 Fraction of Inspir ed Oxygen Hydration adequate: Yes Nausea and vomiting: No Pain level: 1 Mental status: Baseline
== END 2024-01-06 17:40 | disposition home or self-care (01) ==
PROVIDERS: PCP Family Medicine; Visit Provider Orthopaedic Surgery
PROC: 0RB30ZZ Excision of Cervical Vertebral Disc, Open Approach (ICD-10-PCS; CPT 22551; principal; 2024-01-06 12:45)
DX: M54.12 Radiculopathy, cervical region (principal); I12.9 Hypertensive chronic kidney disease with stage 1 through stage 4 chronic kidney disease, or unspecified chronic kidney disease; N18.9 Chronic kidney disease, unspecified
CPT/HCPCS: 20936; 22551; 22552; 22845; 22853 ×2; 36415; 72040; 76000; 86850; 86900; C1713; C1763; C9359; J0131; J0330; J0690; J1100; J2250; J2405; J2704; J3010; J3490; J7030